=== PATIENT | male | born 1985 | race Caucasian/White ===

== ENCOUNTER → 2019-02-01 | Outpatient (CLI) | payer OTHER ==
--- NOTE | 2019-02-01 09:52 | REP ---
MRI LEFT HAND: TECHNIQUE: Multiple sequences obtained in the axial, coronal and sagittal planes. Additional small field of view images are performed of the first digit where there is reportedly pain. There is no evidence of bone marrow edema or occult fracture. Subcentimeter cyst is seen in the triquetrum, measuring about 2 mm. No other osseous abnormalities are seen. Normal amount of joint fluid is seen in the intercarpal joints. The triangular fibrocartilage complex appears intact. Scapholunate and lunatotriquetral ligaments are intact. Collateral ligaments of the digits appear intact as do the flexor and extensor tendons. I do not see evidence of significant tenosynovitis. I do not see evidence of a ganglion cyst or other soft tissue abnormality. I do not see significant arthritic changes. IMPRESSION: Essentially unremarkable MRI left hand. Electronically Signed by Minh Garcia MD 02/06/2019 11:34 A
== END ==
LOC: M RAD 06:48
PROVIDERS: ATTEND Orthopaedic Surgery Sports Medicine
DX: M25.542 Pain in joints of left hand (principal)

== ENCOUNTER → 2019-09-19 | Outpatient (CLI) | payer OTHER ==
--- NOTE | 2019-09-24 00:43 | ECWPNPC ---
PATIENT NAME: GISELLE MARTIN : 1985 GENDER: MALE VISIT DATE: 09/19/2019 DISCHARGE DATE: 09/19/19 1019 VISIT LOCKED DATE TIME: PHYSICIAN: INGE FERNÁNDEZ RESOURCE: INGE FERNÁNDEZ REASON FOR APPOINTMENT 1. CHRONIC LOW BACK HISTORY OF PRESENT ILLNESS PAIN SCREENING: PATIENT HAS A COMPLAINT OF ACUTE OR CHRONIC PAIN :YES 34-YEAR-OLD MALE IN FOR INITIAL PAIN CONSULT. 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 HE HAS BEEN PRESCRIBED BACLOFEN AND FEELS THIS IS HELPFUL. HE RATES HIS PAIN CURRENTLY AT A 7 OUT OF 10 AND DESCRIBES IT ACHING, SHARP, BURNING, STABBING, SORE, AND TENDER. HE FURTHER STATES THE PAIN LASTS ALL DAY AND DOES ADMIT TO RADICULAR SYMPTOMS. FALL RISK SCREENING: SCREENING :NO FALLS REPORTED IN THE LAST YEAR CURRENT MEDICATIONS TAKING METFORMIN HCL 500 MG TABLET 1 TABLET WITH A MEAL ORALLY ONCE A DAY TAKING BACLOFEN 20 MG TABLET 2 TABLET WITH FOOD OR MILK ORALLY DAILY TAKING SERTRALINE HCL 100 MG TABLET 1 TABLET ORALLY ONCE A DAY MEDICATION LIST REVIEWED AND RECONCILED WITH THE PATIENT PAST MEDICAL HISTORY CHRONIC LOW BACK PAIN DIABETES PTSD DEPRESSION/ANXIETY COMPRESSION L1-L4 DISCS ALLERGIES N.K.D.A. 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 DAUGHTER IS ADOPTED. SOCIAL HISTORY GENERAL: TOBACCO USE ARE YOU A:CURRENT SMOKER ARE YOU INTERESTED IN QUITTING?NOT READY TO QUIT COUNSELED THE PATIENT ON SMOKING EFFECTS, EDUCATION [id number]/26/2019 HOW MANY CIGARETTES A DAY DO YOU SMOKE?- PAIN CLINIC PFS, CLERGY, PUBLIC HEALTH REFERRALS HAS THE PATIENT BEEN EDUCATED REGARDING HIS/HER PLAN OF CARE?YES HAS THE PATIENT BEEN EDUCATED REGARDING PAIN, THE RISK FOR PAIN, THE IMPORTANCE OF EFFECTIVE PAIN MANAGEMENT, AND THE PAIN ASSESSMENT PROCESS?YES LATEX QUESTIONNAIRE LATEX ALLERGY : HAVE YOU EVER DEVELOPED ANY TYPE OF REACTION AFTER HANDLING LATEX PRODUCTS SUCH RUBBER GLOVES, CONDOMS, DIAPHRAGMS, BALLOONS, SOCKS, OR UNDERWEAR?NO LATEX ALLERGY : HAVE YOU EVER DEVELOPED ANY TYPE OF REACTION DURING OR AFTER DENTAL APPOINTMENT, VAGINAL/RECTAL EXAMINATION, SURGICAL PROCEDURE, OR ANY OTHER EXPOSURE?NO LATEX RISK : HAVE YOU EVER HAD ANY DIFFICULTY BREATHING OR HIVES AFTER EATING OR HANDLING ANY FRUITS, OR VEGETABLES; SUCH KIWI, BANANAS, STONE FRUITS, OR CHESTNUTSNO LATEX RISK : DO YOU HAVE A PREVIOUS PERSONAL HISTORY OF MORE THAN NINE SURGERIES, SPINA BIFIDA, OR REPEATED CATHERIZATIONS? NO LATEX RISK : ARE YOU FREQUENTLY EXPOSED TO LATEX PRODUCTS IN YOUR OCCUPATION?NO DATE ASKED : 09/19/2019 ADVANCE DIRECTIVE ADVANCE DIRECTIVE DISCUSSED WITH PATIENT:YES DECLINED CHRISTIAN [id number] OTHER LANGUAGE LANGUAGES SPOKEN:MACEDONIAN LEARNING BARRIERS / SPECIAL NEEDS BARRIERS TO LEARNING?NO HEARING IMPAIRED?NO VISION IMPAIRED?NO COGNITIVELY IMPAIRED?NO READINESS TO LEARN?YES LEARNING PREFERENCES?NO LEARNING CAPABILITIES PRESENT?YES EMOTIONAL BARRIERS?NO SPECIAL DEVICES?NO HOSPITALIZATION/MAJOR DIAGNOSTIC PROCEDURE CHEST TUBE REVIEW OF SYSTEMS REVIEWED BY: PROVIDER: CHIDI ADKINS . CONSTITUTIONAL: ANY CHANGE IN YOUR MEDICAL CONDITION? NO . CHILLS NO . FEVER NO . INFECTION: DO YOU HAVE NEW INFECTIONS? NO . DO YOU HAVE HISTORY OF MRSA? NO . MUSCULOSKELETAL: ANY NEW PATTERNS OF PAIN OR NUMBNESS? NO . SYTEMIC LUPUS NO . GASTROENTEROLOGY: ANY NEW CHANGE IN BOWEL CONTROL? NO . BARRETTS ESOPHAGUS NO . CIRRHOSIS NO . HEPATITIS NO . LIVER FAILURE NO . ACID REFLUX NO . UNEXPLAINED WEIGHT LOSS NO . GENITOURINARY: ANY NEW CHANGE IN BLADDER CONTROL? NO . IS THERE A CHANCE YOU COULD BE ? NO . HEMATOLOGY/LYMPH: DO YOU TAKE ANY BLOOD THINNERS? (FOR EXAMPLE- COUMADIN, PLAVIX, AGGRENOX, PLATEL, PRADAXA, OR XARELTO) NO . WHEN WAS YOUR LAST DOSE? DATE: TIME: . LOW PLATELET COUNT NO . SICKLE CELL DISEASE NO . VON WILLIEBRANDS NO . FACTOR V LEIDEN NO . THALLASEMIA NO . ANEMIA NO . EASY BRUISING NO . NEUROLOGY: HAVE YOU FALLEN IN THE PAST 12 MONTHS? NO . ANY NEW EXTREMITY NUMBNESS OR WEAKNESS? NO . HEAD INJURY NO . DEMENTIA NO . CEREBRAL PALSY NO . MULTIPLE SCLEROSIS NO . DIZZINESS NO . HEADACHE NO . STROKES NO . VERTIGO NO . CARDIOLOGY: DO YOU HAVE A PACEMAKER OR DEFIBRILLATOR? NO . ANGINA NO . HEART ATTACK NO . HEART SURGERY NO . CONGESTIVE HEART FAILURE/FLUID OVERLOAD NO . CHEST PAIN NO . HIGH BLOOD PRESSURE NO . IRREGULAR HEART BEAT NO . RESPIRATORY: HAVE YOU BEEN SICK IN THE PAST WEEK? NO . FEVER NO . FLU LIKE SYMPTOMS? NO . CPAP NO . BYPAP NO . ASTHMA NO . EMPHYSEMA NO . CHRONIC LUNG DISEASES NO . SHORTNESS OF BREATH ON EXERTION NO . COUGH NO . SNORING NO . INTEGUMENTARY: DO YOU HAVE ANY RASHES OR OPEN SORES? NO . ALLERGIC/IMMUNO: ARE YOU ALLERGIC TO IV DYE? NO . ANY NEW ALLERGIES? NO . PSYCHIATRIC: DO YOU HAVE THOUGHTS OF HURTING YOURSELF OR SOMEONE ELSE? NO . ARE YOU ABUSED, NEGLECTED, OR IN AN UNSAFE ENVIRONMENT? NO . ENDOCRINOLOGY: ARE YOU DIABETIC? NO . THYROID DISORDER NO . OTHER: DO YOU NEED ANY PRESCRIPTIONS? NO . IF YES, PLEASE LIST: ____ . ANY NEW PROBLEMS WITH YOUR MEDICATIONS? NO . WHEN DID YOU LAST EAT? ____ . WHEN DID YOU LAST DRINK? ____ . WHAT DID YOU LAST DRINK? ____ . NAME OF PERSON DRIVING YOU HOME? ____ . DO YOU HAVE ANY OTHER QUESTIONS OR CONCERNS NO . VITAL SIGNS WT 180.2 LBS, HT 65 IN, BMI 29.98 INDEX, BP 143/92 MM HG, HR 76 /MIN, RR 18 /MIN, TEMP 98.5 F, OXYGEN SAT % 97%, NA INITIALS SC 09:15, REVIEWED BY: EM. EXAMINATION GENERAL EXAMINATION: GENERALNO ACUTE DISTRESS, WELL NOURISHED AND HYDRATED. PSYCHAPPROPRIATE MOOD AND AFFECT . LUNGS:CLEAR TO AUSCULTATION BILATERALLY, NO WHEEZES, RHONCHI, RALES. HEART:NO MURMURS, REGULAR RATE AND RHYTHM. BACK:POINT TENDER ALONG LUMBAR SPINE, SURROUNDING SKIN SHOWS NO ERYTHEMA, ECCHYMOSIS, INCREASED WARMTH, AND/OR SKIN ERUPTIONS NOTED. . MUSCULOSKELETAL:EQUAL STRENGTH OF THE LOWER EXTREMITIES BILATERALLY . ASSESSMENTS INTERVERTEBRAL DISC DISORDER WITH RADICULOPATHY OF LUMBAR REGION - M51.16 (PRIMARY) TREATMENT INTERVERTEBRAL DISC DISORDER WITH RADICULOPATHY OF LUMBAR REGION INCREASE BACLOFEN TABLET, 20 MG, 1 TABLET IN THE AFTERNOON 2 TABLETS AT AT BEDTIME, ORALLY, DAILY, 30 DAYS, 90 NOTES: LESI L4-L5 L5-S1,LUMBAR EPIDURAL STEROID INJECTION MATERIAL WAS PUBLISHED TO [employer]. CLINICAL NOTES: 34-YEAR-OLD MALE IN FOR INITIAL PAIN CONSULT. GIVEN PRESENTING SYMPTOMS AND RESULTS OF PHYSICAL EXAMINATION RECOMMENDED LESI L4-L5 L5-S1 WITH POSTPROCEDURAL FOLLOW-UP. HE HAS BEEN TAKING BACLOFEN AND FOUND THIS HELPFUL RECOMMENDED INCREASING BACLOFEN TO 60 MG DAILY. PATIENT HAS EXPRESSED UNDERSTANDING OF AND WAS IN AGREEMENT WITH TREATMENT PLAN. GIVEN TIME TO ASK QUESTIONS AND EXPRESS CONCERNS. PROCEDURE CODES FA211 ESTABILISHED PATIENT [facility] CHARGE DISPOSITION & COMMUNICATION FOLLOW UP POSTPROCEDURE (REASON: LESI L4-L5 L5-S1) ELECTRONICALLY SIGNED BY ELYSSA HOLMAN ON 09/23/2019 AT 03:11 PM EST DISCLAIMER : THIS IS A VISIT SUMMARY EXTRACTED FROM THE [employer] CHART. IT IS NOT A COPY OF THE [employer] PROGRESS NOTE. MTDD
== END ==
LOC: M PAIN 09:00
PROVIDERS: ATTEND Family Medicine
DX: M51.16 Intervertebral disc disorders with radiculopathy, lumbar region (principal)

== ENCOUNTER → 2019-10-14 | Outpatient (CLI) | payer OTHER ==
[~2019-10-14] MED LIST: ISOVUE-M 300 61% 15ML VIAL (Q9967) As Ordered ONE; LIDOCAINE 1% SDV INJ 30 ML VIAL As Ordered ONE; diazePAM 5 MG TAB As Ordered ONE; methylPREDNISolone SUSP 40 MG/ML (DEPO-medrol) VIAL (J1030) As Ordered ONE; oxyCODONE 5MG TAB As Ordered ONE
--- NOTE | 2019-10-15 07:57 | REP ---
Partial lumbar spine series: Three views . History: Injection procedure for pain. Six seconds of fluoroscopy time is reported. Findings: A sequence of three fluoroscopically obtained last image hold procedural spot radiographs of the lumbar spine document needle position and contrast injection associated with injection procedure. Electronically Signed by Edgar Batista MD 10/15/2019 07:48 A
--- NOTE | 2019-10-26 04:03 | ECWPNPC ---
PATIENT NAME: GISELLE MARTIN : 1985 GENDER: MALE VISIT DATE: 10/14/2019 DISCHARGE DATE: 10/14/191735 VISIT LOCKED DATE TIME: PHYSICIAN: VIDHI LEAL MD RESOURCE: VIDHI LEAL MD REASON FOR APPOINTMENT 1. LESI HISTORY OF PRESENT ILLNESS HISTORY OF PRESENT ILLNESS: PAIN THE PATIENT DESCRIBES THE PAIN... FALL RISK SCREENING: SCREENING :NO FALLS REPORTED IN THE LAST YEAR CURRENT MEDICATIONS TAKING METFORMIN HCL 500 MG TABLET 1 TABLET WITH A MEAL ORALLY ONCE A DAY, NOTES: 10/12/2019 TAKING SERTRALINE HCL 100 MG TABLET 1 TABLET ORALLY ONCE A DAY, NOTES: 10/13/2019 TAKING BACLOFEN 20 MG TABLET 1 TABLET IN THE AFTERNOON 2 TABLETS AT AT BEDTIME ORALLY DAILY, NOTES: 10/13/2019 MEDICATION LIST REVIEWED AND RECONCILED WITH THE PATIENT PAST MEDICAL HISTORY CHRONIC LOW BACK PAIN DIABETES PTSD DEPRESSION/ANXIETY COMPRESSION L1-L4 DISCS ALLERGIES N.K.D.A. SURGICAL HISTORY SPONTANEOUS PNEUMOTHORAX CHEST TUBE PLACED HIGH SCHOOL RIGHT ANKLE 2005 RIGHT SHOULDER 2016 WISDOM TEETH EXTRACTED FAMILY HISTORY FATHER: MOTHER: ALIVE 1 SON(S) , 1 DAUGHTER(S) - HEALTHY. DAUGHTER IS ADOPTED. SOCIAL HISTORY GENERAL: TOBACCO USE ARE YOU A:CURRENT SMOKER HOW MANY CIGARETTES A DAY DO YOU SMOKE?21-30 ARE YOU INTERESTED IN QUITTING?NOT READY TO QUIT COUNSELED THE PATIENT ON SMOKING EFFECTS, EDUCATION [id number]/26/2019 PAIN CLINIC PFS, CLERGY, PUBLIC HEALTH REFERRALS HAS THE PATIENT BEEN EDUCATED REGARDING HIS/HER PLAN OF CARE?YES HAS THE PATIENT BEEN EDUCATED REGARDING PAIN, THE RISK FOR PAIN, THE IMPORTANCE OF EFFECTIVE PAIN MANAGEMENT, AND THE PAIN ASSESSMENT PROCESS?YES LATEX QUESTIONNAIRE LATEX ALLERGY : HAVE YOU EVER DEVELOPED ANY TYPE OF REACTION AFTER HANDLING LATEX PRODUCTS SUCH RUBBER GLOVES, CONDOMS, DIAPHRAGMS, BALLOONS, SOCKS, OR UNDERWEAR?NO LATEX ALLERGY : HAVE YOU EVER DEVELOPED ANY TYPE OF REACTION DURING OR AFTER DENTAL APPOINTMENT, VAGINAL/RECTAL EXAMINATION, SURGICAL PROCEDURE, OR ANY OTHER EXPOSURE?NO DATE ASKED : 09/19/2019 LATEX RISK : HAVE YOU EVER HAD ANY DIFFICULTY BREATHING OR HIVES AFTER EATING OR HANDLING ANY FRUITS, OR VEGETABLES; SUCH KIWI, BANANAS, STONE FRUITS, OR CHESTNUTSNO LATEX RISK : DO YOU HAVE A PREVIOUS PERSONAL HISTORY OF MORE THAN NINE SURGERIES, SPINA BIFIDA, OR REPEATED CATHERIZATIONS? NO LATEX RISK : ARE YOU FREQUENTLY EXPOSED TO LATEX PRODUCTS IN YOUR OCCUPATION?NO ADVANCE DIRECTIVE ADVANCE DIRECTIVE DISCUSSED WITH PATIENT:YES DECLINED INFORMATION OR ASSISTANCE AT THIS TIME MU-ISM [id number] OTHER LANGUAGE LANGUAGES SPOKEN:SCOTTISH LEARNING BARRIERS / SPECIAL NEEDS BARRIERS TO LEARNING?NO HEARING IMPAIRED?NO VISION IMPAIRED?NO COGNITIVELY IMPAIRED?NO READINESS TO LEARN?YES LEARNING PREFERENCES?NO LEARNING CAPABILITIES PRESENT?YES EMOTIONAL BARRIERS?NO SPECIAL DEVICES?NO REVIEWED WITH PATIENT 10/14/2019 LAS. HOSPITALIZATION/MAJOR DIAGNOSTIC PROCEDURE CHEST TUBE REVIEW OF SYSTEMS REVIEWED BY: PROVIDER: . CONSTITUTIONAL: ANY CHANGE IN YOUR MEDICAL CONDITION? NO . CHILLS NO . FEVER NO . INFECTION: DO YOU HAVE NEW INFECTIONS? NO . DO YOU HAVE HISTORY OF MRSA? NO . MUSCULOSKELETAL: ANY NEW PATTERNS OF PAIN OR NUMBNESS? NO . GASTROENTEROLOGY: ANY NEW CHANGE IN BOWEL CONTROL? NO . GENITOURINARY: ANY NEW CHANGE IN BLADDER CONTROL? NO . IS THERE A CHANCE YOU COULD BE ? NO . HEMATOLOGY/LYMPH: DO YOU TAKE ANY BLOOD THINNERS? (FOR EXAMPLE- COUMADIN, PLAVIX, AGGRENOX, PLATEL, PRADAXA, OR XARELTO) NO . WHEN WAS YOUR LAST DOSE? DATE: TIME: . NEUROLOGY: HAVE YOU FALLEN IN THE PAST 12 MONTHS? NO . ANY NEW EXTREMITY NUMBNESS OR WEAKNESS? NO . CARDIOLOGY: DO YOU HAVE A PACEMAKER OR DEFIBRILLATOR? NO . RESPIRATORY: HAVE YOU BEEN SICK IN THE PAST WEEK? NO . FEVER NO . FLU LIKE SYMPTOMS? NO . COUGH NO . INTEGUMENTARY: DO YOU HAVE ANY RASHES OR OPEN SORES? NO . ALLERGIC/IMMUNO: ARE YOU ALLERGIC TO IV DYE? NO . ANY NEW ALLERGIES? NO . PSYCHIATRIC: DO YOU HAVE THOUGHTS OF HURTING YOURSELF OR SOMEONE ELSE? NO . ARE YOU ABUSED, NEGLECTED, OR IN AN UNSAFE ENVIRONMENT? NO . ENDOCRINOLOGY: ARE YOU DIABETIC? YES . OTHER: DO YOU NEED ANY PRESCRIPTIONS? NO . IF YES, PLEASE LIST: ____ . ANY NEW PROBLEMS WITH YOUR MEDICATIONS? NO . WHEN DID YOU LAST EAT? ____10/13/2019 1700 . WHEN DID YOU LAST DRINK? ____10/14/2019 0800 . WHAT DID YOU LAST DRINK? ____WATER . NAME OF PERSON DRIVING YOU HOME? ____WIFE . DO YOU HAVE ANY OTHER QUESTIONS OR CONCERNS NO . VITAL SIGNS WT 178.6 LBS, HT 65 IN, BMI 29.72 INDEX, BP 141/74 MM HG, HR 101 /MIN, RR 18 /MIN, TEMP 99.0 F, OXYGEN SAT % 96% RA, BLOOD GLUCOSE LEVEL DIDNT TEST, SAFE IN ENV? (Y/N) YESA. ADRIANA CHAU. ASSESSMENTS INTERVERTEBRAL DISC DISORDER WITH RADICULOPATHY OF LUMBAR REGION - M51.16 (PRIMARY) TREATMENT INTERVERTEBRAL DISC DISORDER WITH RADICULOPATHY OF LUMBAR REGION [facility] FLUORO GUIDE SPINE INJECTION (PAIN)[id number] PROCEDURES PRE PROCEDURE DIAGNOSIS LUMBAR DISC DISORDER WITH RADICULOPATHY POST PROCEDURE DIAGNOSIS LUMBAR DISC DISORDER WITH RADICULOPATHY PROCEDURE LUMBAR EPIDURAL STEROID INJECTION UNDER FLUOROSCOPIC GUIDANCE SURGEON DR. VIDHI LEAL CONE TRUCKER NONE ANESTHESIA LOCAL PRE PROCEDURE NOTE THE PATIENT HAS A HISTORY OF CHRONIC LOW BACK PAIN. I EVALUATED THE PATIENT AND REVIEWED THE CHART. I WENT OVER THE RISKS, ALTERNATIVES, AND BENEFITS ASSOCIATED WITH THIS PROCEDURE. THE PATIENT WOULD LIKE TO PROCEED AND GIVES CONSENT TO PERFORM THE PROCEDURE. THE PATIENT DENIES UNEXPLAINABLE WEIGHT LOSS, FEVER, CHILLS, OR NEW CHANGES IN URINARY OR BOWEL CONTROL. DESCRIPTION OF PROCEDURE THE PATIENT WAS BROUGHT TO THE PROCEDURE ROOM AND PLACED IN THE PRONE POSITION. THE LUMBOSACRAL AREA WAS CLEANED WITH BETADINE SOLUTION AND DRAPED ASEPTICALLY. THE PROCEDURE WAS DONE UNDER STERILE CONDITIONS. I CHECKED LATERALITY AND THE LEVEL WHERE THE PROCEDURE WAS GOING TO BE PERFORMED WITH THE PATIENT AND THE SUPPORTING STAFF AT THE MOMENT OF THE TIME OUT IN THE PROCEDURE ROOM. UNDER FLUOROSCOPIC GUIDANCE, THE TARGET POINT WAS SELECTED AT THE INTERLAMINAR LEVEL OF L3-L4. LIDOCAINE WAS USED TO NUMB THE SKIN AND THE SUBCUTANEOUS TISSUE BELOW IT. EPIDURAL TUOHY NEEDLE, 17-GAUGE, WAS ADVANCED UNDER FLUOROSCOPIC GUIDANCE AND FOLLOWING PATIENT FEEDBACK UNTIL THE EPIDURAL SPACE WAS REACHED, 7 CM DEEP INTO THE SKIN BY THE LOSS OF RESISTANCE TECHNIQUE. ISOVUE M DYE 30%, 0.25 ML, WAS INJECTED SHOWING ADEQUATE SPREAD OF THE DYE. THEN, A SOLUTION OF 3 ML OF NORMAL SALINE WITH DEPO-MEDROL 60 MG WAS INJECTED SLOWLY FOLLOWING PATIENT FEEDBACK. THERE WAS NO EVIDENCE OF BLOOD, PARESTHESIA OR CEREBROSPINAL FLUID DURING THE PROCEDURE. THE PATIENT WAS SENT TO THE RECOVERY ROOM. THE PATIENT WAS MOVING THE EXTREMITIES AND DOING WELL. THERE WAS NO COMPLICATION DURING THE PROCEDURE. FLUOROSCOPY TIME WAS 6 SECONDS. POST PROCEDURE NOTE THE PATIENT WILL BE SEEN IN A FOLLOW UP IN THE NEXT FEW WEEKS. I AM LOOKING FOR LONG LASTING PAIN RELIEF WITH THIS INJECTION. INSTRUCTIONS WERE GIVEN, QUESTIONS WERE ANSWERED, AND THE PATIENT EXPRESSED UNDERSTANDING AND AGREES WITH THE PLAN. I, RHINA PERALTA, DOCUMENTED THE ABOVE INFORMATION ACTING A SCRIBE FOR DR. LEAL. I HAVE REVIEWED THE ABOVE DOCUMENT, WRITTEN BY RHINA PERALTA SCRIBE AND I VERIFY THAT IT IS ACCURATE. PROCEDURE CODES 92115 LUMBAR/SACRAL W/ IMAGING 6045F RADXPS IN END [id number] PXD DISPOSITION & COMMUNICATION FOLLOW UP 2 WEEKS ELECTRONICALLY SIGNED BY VIDHI LEAL MD, MD ON 10/25/2019 AT 05:23 PM EST DISCLAIMER : THIS IS A VISIT SUMMARY EXTRACTED FROM THE [employer] CHART. IT IS NOT A COPY OF THE [employer] PROGRESS NOTE. MTDSurya
== END ==
LOC: M PAIN 14:30
PROVIDERS: ATTEND Anesthesiology
DX: M51.16 Intervertebral disc disorders with radiculopathy, lumbar region (principal); E11.9 Type 2 diabetes mellitus without complications; F17.210 Nicotine dependence, cigarettes, uncomplicated; Z79.84 Long term (current) use of oral hypoglycemic drugs; Z79.899 Other long term (current) drug therapy
CPT/HCPCS: 62323; J1030; Q9967

== ENCOUNTER 2020-10-11 19:54 | Inpatient (IN) | payer OTHER ==
[~2020-10-11] VITALS: Ht 170.2 cm; Wt 77.1 kg
--- OUTSIDE RECORDS SUMMARY | 2020-10-11 19:59 | CCD ---
Author Author [facility] Organization [facility] Address Unknown Phone Unavailable Care Team Providers Care Police Lieutenant Precinct Name Role Phone TERRI NEWTON MD Unavailable Unavailable TERRI NEWTON MD Unavailable Unavailable TERRI NEWTON MD Unavailable Unavailable TERRI NEWTON MD Unavailable Unavailable TERRI NEWTON MD Unavailable Unavailable TERRI NEWTON MD Unavailable Unavailable TERRI NEWTON MD Unavailable Unavailable TERRI NEWTON MD Unavailable Unavailable TERRI NEWTON MD Unavailable Unavailable TERRI NEWTON MD Unavailable Unavailable TERRI NEWTON MD Unavailable Unavailable TERRI NEWTON MD Unavailable Unavailable TERRI NEWTON MD Unavailable Unavailable TERRI NEWTON MD Unavailable Unavailable TERRI NEWTON MD Unavailable Unavailable TERRI NEWTON MD Unavailable Unavailable TERRI NEWTON MD Unavailable Unavailable TERRI NEWTON MD Unavailable Unavailable TERRI NEWTON MD Unavailable Unavailable TERRI NEWTON MD Unavailable Unavailable TERRI NEWTON MD Unavailable Unavailable TERRI NEWTON MD Unavailable Unavailable TERRI NEWTON MD Unavailable Unavailable TERRI NEWTON MD Unavailable Unavailable TERRI NEWTON MD Unavailable Unavailable TERRI NEWTON MD Unavailable Unavailable TERRI NEWTNO MD Unavailable Unavailable TERRI NEWTON MD Unavailable Unavailable TERRI NEWTON MD Unavailable Unavailable TERRI NEWTON MD Unavailable Unavailable TERRI NEWTON MD Unavailable Unavailable TERRI NEWTON MD Unavailable Unavailable TERRI NEWTON MD Unavailable Unavailable TERRI NEWTON MD Unavailable Unavailable TERRI NEWTON MD Unavailable Unavailable AMAN, TERRI MD Unavailable Unavailable AMAN, TERRI MD Unavailable Unavailable AMAN, TERRI MD Unavailable Unavailable AMAN, TERRI MD Unavailable Unavailable AMAN, TERRI MD Unavailable Unavailable AMAN, TERRI MD Unavailable Unavailable AMAN, TERRI MD Unavailable Unavailable AMAN, TERRI MD Unavailable Unavailable AMAN, TERRI MD Unavailable Unavailable AMAN, TERRI MD Unavailable Unavailable AMAN, TERRI MD Unavailable Unavailable AMAN, TERRI MD Unavailable Unavailable AMAN, TERRI MD Unavailable Unavailable AMAN, TERRI MD Unavailable Unavailable AMAN, TERRI MD Unavailable Unavailable AMAN, TERRI MD Unavailable Unavailable AMAN, TERRI MD Unavailable Unavailable Re-disclosure Warning The records that you are about to access may contain information from federally-assisted alcohol or drug abuse programs. If such information is present, then the following federally mandated warning applies: This information has been disclosed to you from records protected by federal confidentiality rules (42 CFR part 2). The federal rules prohibit you from making any further disclosure of this information unless further disclosure is expressly permitted by the written consent of the person to whom it pertains or as otherwise permitted by 42 CFR part 2. A general authorization for the release of medical or other information is NOT sufficient for this purpose. The Federal rules restrict any use of the information to criminally investigate or prosecute any alcohol or drug abuse patient.The records that you are about to access may contain highly sensitive health information, the redisclosure of which is protected by Article 27-F of the [facility] Public Health law. If you continue you may have access to information: Regarding HIV / AIDS; Provided by facilities licensed or operated by the [facility] Office of Mental Health; or Provided by the [facility] Office for People With Developmental Disabilities. If such information is present, then the following [facility] mandated warning applies: This information has been disclosed to you from confidential records which are protected by state law. State law prohibits you from making any further disclosure of this information without the specific written consent of the person to whom it pertains, or as otherwise permitted by law. Any unauthorized further disclosure in violation of state law may result in a fine or long term sentence or both. A general authorization for the release of medical or other information is NOT sufficient authorization for further disc losure. Encounters Encounter Providers Location Date Indications Data Source(s ) Outpatient Referrer: TERRI NEWTON MD 02/05/2020 09:48:00 AM ED T [facility] Outpatient Referrer: TERRI NEWTON MD 10/27/2019 02:49:00 PM ES T [facility] Outpatient Referrer: TERRI NEWTON MD 10/18/2019 01:51:00 PM ES T [facility] [address] [place] [address] 10/14/2019 12:00:00 AM EST eCW1 ([facility]) [facility] [address] [place] [address] 09/19/2019 12:00:00 AM EST eCW1 ([facility]) Insurance Providers Payer name Policy type / Coverage type Policy ID Covered democrat ID Covered democrat's relationship to alicea Policy [place] Plan Information S [facility] [id number] SP [id number] WEST O [id number] S [id number] 'S ADMINISTRATION [id number] SP [id number] [facility] O [id number] S [id number] [employer] - O/P [id number] 18 [id number] [facility] - CLINIC [id number] 18 [id number] [employer] CHOICE PROGRAM - CLIN [id number] 18 [id number] [facility] P [id number] S [id number] Surgeries/Procedures Procedure Description Date Indications Data Source(s) Lumbar/Sacral w/ Imaging 10/14/2019 12:00:00 AM EST eCW1 ([facility]) RADXPS IN END [id number] 10/14/2019 12:00:00 AM ES T eCW1 ([facility]) ESTABILISHED PATIENT [facility] FACILITY CHARGE 019 12:00:00 AM EST eCW1 ([facility]) Vital Signs ID Date Data Source UNK Name Value Range Interpretation Code Description Data Source(s) Diastolic blood pressure 74 mm[Hg] 74 mm[Hg] eCW1 ([facility]) Systolic blood pressure 141 mm[Hg] 141 mm[Hg] e CW1 ([facility]) Body temperature 99.0 [degF] 99.0 [degF] eCW1 ( [facility]) Respiratory rate 18 /min 18 /min [facility] Heart rate 101 /min 101 /min eCW[facility] Body mass index (BMI) [Ratio] 29.72 kg/m2 29.72 kg/m2 eCW1 ([facility]) Body height 65 [in_us] 65 [in_us] eCW1 ([facility]) Body weight Measured 178.6 [lb_av] 178.6 [lb_av ] eCW1 ([facility]) Diastolic blood pressure 92 mm[Hg] 92 mm[Hg] eCW1 ([facility]) Systolic blood pressure 143 mm[Hg] 143 mm[Hg] e CW1 ([facility]) Body temperature 98.5 [degF] 98.5 [degF] eCW1 ( [facility]) Respiratory rate 18 /min 18 /min eCW[facility] Heart rate 76 /min 76 /min eCW1 ([facility]) Body mass index (BMI) [Ratio] 29.98 kg/m2 29.98 kg/m2 eCW1 ([facility]) Body height 65 [in_us] 65 [in_us] eCW1 ([facility]) Body weight Measured 180.2 [lb_av] 180.2 [lb_av ] eCW1 ([facility])
[2020-10-11 20:20] LABS: HEMOGLOBIN 15.3 g/dl (13.5-17.5); MEAN CORPUSCULAR HEMOGLOBIN 30.6 pg (27.0-33.0); PLATELET COUNT, AUTOMATED 232 10^3/uL (150-450)
[2020-10-11 20:54] LABS: AMPHETAMINES LEVEL URINE NEGATIVE (NEGATIVE); BARBITURATES URINE NEGATIVE (NEGATIVE); BENZODIAZEPINES URINE NEGATIVE (NEGATIVE); CANNABINOIDS URINE POSITIVE (NEGATIVE); COCAINE METABOLITE URINE NEGATIVE (NEGATIVE); METHADONE URINE NEGATIVE (NEGATIVE); OPIATES URINE NEGATIVE (NEGATIVE); PHENCYCLIDINE URINE NEGATIVE (NEGATIVE)
[2020-10-11 21:01] LABS: ACETAMINOPHEN LEVEL < 2.0 UG/ML (10.0-30.0); ALBUMIN 4.4 GM/DL (3.2-5.2); ALT/SGPT 31 U/L (12-78); BILIRUBIN,DIRECT 0.2 MG/DL (0.0-0.2); BILIRUBIN,TOTAL 0.5 MG/DL (0.2-1.0); BLOOD UREA NITROGEN 13 MG/DL (7-18); CALCIUM LEVEL 9.1 MG/DL (8.5-10.1); CARBON DIOXIDE LEVEL 25 MEQ/L (21-32); CHLORIDE LEVEL 105 MEQ/L (98-107); CREATININE FOR GFR 0.86 MG/DL (0.70-1.30); ETHYL ALCOHOL (ETHANOL) < 0.003 % (0.000-0.010); GLOMERULAR FILTRATION RATE > 60.0 (>60); GLUCOSE, FASTING 85 MG/DL (70-100); POTASSIUM SERUM 3.7 MEQ/L (3.5-5.1); SALICYLATE LEVEL < 1.7 MG/DL (5.0-30.0); SODIUM LEVEL 137 MEQ/L (136-145); TOTAL PROTEIN 7.7 GM/DL (6.4-8.2)
[2020-10-11] MEDS ORDERED: METF-839 PO (21:26)
[2020-10-11] MEDS ORDERED: ZOLO100T PO (21:27)
[2020-10-11 21:28] LABS: RSV AMPLIFICATION NEGATIVE (NEGATIVE)
[2020-10-11 21:38] LABS: HEMATOCRIT 45.6 % (42.0-52.0); HEMOGLOBIN 15.3 g/dl (13.5-17.5); MEAN CORPUSCULAR HEMOGLOBIN 29.8 pg (27.0-33.0); MEAN CORPUSCULAR HGB CONC 33.6 g/dl (32.0-36.5); MEAN CORPUSCULAR VOLUME 88.9 fl (80.0-96.0); PLATELET COUNT, AUTOMATED 239 10^3/uL (150-450); RED BLOOD COUNT 5.13 10^6/uL (4.30-6.10); WHITE BLOOD COUNT 26.8 10^3/uL (4.0-10.0)
--- OUTSIDE RECORDS SUMMARY | 2020-10-11 21:39 | CCD ---
Author Author [facility] Organization [facility] Address Unknown Phone Unavailable Care Team Providers Care Talent Sourcing Specialist Name Role Phone TERRI NEWTON MD Unavailable [...] is protected by Article 27-F of the [facility] Public Health law. If you continue you may have access to information: Regarding HIV / AIDS; Provided by facilities licensed or operated by the [facility] Office of Mental Health; or Provided by the [facility] Office for People With Developmental Disabilities. If such information is present, then the following [facility] mandated warning applies: This information has been [...] law may result in a fine or care home sentence or both. A general authorization for the release of medical or other information is NOT sufficient authorization for further disc losure. Encounters Encounter Providers Location Date Indications Data Source(s ) Outpatient Referrer: TERRI NEWTON MD 02/05/2020 09:48:00 AM ED T [facility] Outpatient Referrer: TERRI NEWTON MD 10/27/2019 02:49:00 PM ES T [facility] Outpatient Referrer: TERRI NEWTON MD 10/18/2019 01:51:00 PM ES T [facility] [address] [place] [phone] 10/14/2019 12:00:00 AM EST eCW1 (Formerly [facility]) [facility] [address] [place] [phone] 09/19/2019 12:00:00 AM EST eCW1 (Formerly [facility]) Insurance Providers Payer name Policy type / Coverage type Policy ID Covered alliance party ID Covered alliance party's relationship to alicea Policy Alicea Plan Information 'S ADMINISTRATION [id number] SP [id number] S [employer] [facility] [id number] SP [id number] WEST O [id number] S [id number] [facility] O [id number] S [id number] VETERANS CHOICE PROGRAM - O/P [id number] 18 [id number] [facility] [id number] 18 [id number] [place] [id number] 18 [id number] [facility] P [id number] S 0 [id number] Surgeries/Procedures Procedure Description Date Indications Data Source(s) Lumbar/Sacral w/ Imaging 10/14/2019 12:00:00 AM EST eCW1 ([facility]) RADXPS IN END [id number] PXD 10/14/2019 12:00:00 AM ES T eCW1 ([facility]) ESTABILISHED PATIENT [facility] FACILITY CHARGE 019 12:00:00 AM EST eCW1 ([facility]) Vital Signs ID Date Data Source UNK Name Value Range Interpretation Code Description Data Source(s) Diastolic blood pressure 74 mm[Hg] 74 mm[Hg] eCW1 ([facility]) Systolic blood pressure 141 mm[Hg] 141 mm[Hg] e CW1 ([facility]) Body temperature 99.0 [degF] 99.0 [degF] eCW1 ( [facility]) Respiratory rate 18 /min 18 /min eCW1 ([facility]) Heart rate 101 /min 101 /min eCW1 ([facility]) Body mass index (BMI) [Ratio] 29.72 kg/m2 29.72 kg/m2 eCW1 ([facility]) Body height 65 [in_us] 65 [in_us] eCW1 ([facility]) Body weight Measured 178.6 [lb_av] 178.6 [lb_av ] eCW1 ([facility]) Diastolic blood pressure 92 mm[Hg] 92 mm[Hg] eCW1 ([facility]) Systolic blood pressure 143 mm[Hg] 143 mm[Hg] e CW1 ([facility]) Body temperature 98.5 [degF] 98.5 [degF] eCW1 ( [facility]) Respiratory rate 18 /min 18 /min eCW1 ([facility]) Heart rate 76 /min 76 /min eCW1 ([facility]) Body mass index (BMI) [Ratio] 29.98 kg/m2 29.98 kg/m2 W1 ([facility]) Body height 65 [in_us] 65 [in_us] eCW1 ([facility]) Body weight Measured 180.2 [lb_av] 180.2 [lb_av ] W1 ([facility])
--- NOTE | 2020-10-12 09:13 | ECGEPIP ---
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
[2020-10-12] MEDS ORDERED: NICOTINE 21MG/24HR 1 EA TRANSDERMAL TD ONE (13:00)
[2020-10-12] MEDS ORDERED: LORazepam 2 MG TAB PO STA (13:34)
[2020-10-12 14:10] LABS: BASO # 0.1 10^3/uL (0.0-0.2); BASO % 0.9 % (0.0-1.0); EOS # 0.6 10^3/uL (0.0-0.5); EOS % 6.3 % (0.0-3.0); HEMATOCRIT 48.7 % (42.0-52.0); HEMOGLOBIN 16.2 g/dl (13.5-17.5); LYMPH # 3.3 10^3/uL (1.5-5.0); LYMPH % 32.3 % (24.0-44.0); MEAN CORPUSCULAR HEMOGLOBIN 30.1 pg (27.0-33.0); MEAN CORPUSCULAR HGB CONC 33.3 g/dl (32.0-36.5); MEAN CORPUSCULAR VOLUME 90.5 fl (80.0-96.0); MONO # 0.7 10^3/uL (0.0-0.8); MONO % 7.2 % (0.0-5.0); NEUTROPHILS # 5.3 10^3/uL (1.5-8.5); NEUTROPHILS % 52.9 % (36.0-66.0); PLATELET COUNT, AUTOMATED 245 10^3/uL (150-450); RED BLOOD COUNT 5.38 10^6/uL (4.30-6.10); WHITE BLOOD COUNT 10.1 10^3/uL (4.0-10.0)
[2020-10-12 18:34] LABS: RSV AMPLIFICATION NEGATIVE (NEGATIVE)
[2020-10-12] MEDS ORDERED: ACETAMINOPHEN TAB 650MG DOSE (2X325MG) PO PRN (19:15)
[2020-10-12] MEDS ORDERED: MOM 30ML SUSPENSION UDC PO PRN (19:15)
[2020-10-12] MEDS ORDERED: MAALOX 30 ML SUSP *UDC PO PRN (19:15)
[2020-10-12] MEDS ORDERED: traZODone 50 MG TAB PO PRN (19:15)
--- OUTSIDE RECORDS SUMMARY | 2020-10-12 19:43 | CCD ---
Author Author [facility] Organization [facility] Address Unknown Phone Unavailable Care Team Providers Care Help Aid Name Role Phone Selin Boyer MD Unavailable Unavailable Merlin, Selin Phillips MD Unavailable Unavailable Merlin, Selin Phillips MD Unavailable Unavailable Merlin, Selin Phillips MD Unavailable Unavailable Merlin, Selin Phillips MD Unavailable Unavailable Merlin, Selin Phillips MD Unavailable Unavailable Chakayode, Selin Phillips MD Unavailable Unavailable Chakayode, Selin Phillips MD Unavailable Unavailable Merlin, Selin Phillips MD Unavailable Unavailable Merlin, Selin Phillips MD Unavailable Unavailable Merlin, Selin Phillips MD Unavailable Unavailable Merlin, Selin Phillips MD Unavailable Unavailable Merlin, Selin Phillips MD Unavailable Unavailable Merlin, Selin Phillips MD Unavailable Unavailable Merlin, Selin Phillips MD Unavailable Unavailable TERRI NEWTON MD Unavailable [...] Unavailable Unavailable AMAN, TERRI MD Unavailable Unavailable SYSTEM, NOT IN PROVIDER Unavailable Unavailable Re-disclosure Warning The records that [...] is protected by Article 27-F of the [facility] Public Health law. If you continue you may have access to information: Regarding HIV / AIDS; Provided by facilities licensed or operated by the [facility] Office of Mental Health; or Provided by the [facility] Office for People With Developmental Disabilities. If such information is present, then the following [place] mandated warning applies: This information has been [...] law may result in a fine or nursing home sentence or both. A general authorization for the release of medical or other information is NOT sufficient authorization for further disc losure. Encounters Encounter Providers Location Date Indications Data Source(s ) Outpatient Referrer: Alan Boyer MD 10/12/2020 11:01:00 A M EST PTSD, SI [facility] PTSD, SI Outpatient Referrer: PROVIDER SYSTEM [id number] 10/12/2020 01:1 2:00 AM EST depressive disorder [facility] depressive disorder Outpatient Referrer: TERRI NEWTON MD 02/05/2020 09:48:00 AM ED T [facility] Outpatient Referrer: TERRI NEWTON MD 10/27/2019 02:49:00 PM ES T [facility] Outpatient Referrer: TERRI NEWTON MD 10/18/2019 01:51:00 PM ES T [facility] [address] [place] [phone] 10/14/2019 12:00:00 AM EST [facility]CW[facility] [address] [place] [phone] 09/19/2019 12:00:00 AM EST eCW1 [facility] Insurance Providers Payer name Policy type / Coverage type Policy ID Covered green party ID Covered green party's relationship to alicea Policy Alicea Plan Information [facility] [id number] [facility] [id number] 'S ADMINISTRATION [id number] SP [id number] [facility] [id number] [facility] 82 [id number] [facility] [id number] SP [id number] WEST O [id number] S [id number] [facility] O [id number] S [id number] [employer]ANS CHOICE PROGRAM - O/P [id number] 18 [id number] [facility] [id number] 18 [id number] [facility]ICE PRO[facility] - [facility] [id number] 18 [id number] [facility] [id number] S 0 [id number] Problems, Conditions, and Diagnoses Code Display Name Description Problem Type Effective Dates Data Source(s) PTSD, SI PTSD, SI Diagnosis 10/12/2020 11:01:00 AM ES [facility] depressive disorder depressive disorder Diagnosis 021 01:12:00 AM [facility] Surgeries/Procedures Procedure Description Date Indications Data Source(s) Lumbar/Sacral w/ Imaging 10/14/2019 12:00:00 AM EST eCW1 ([facility]) RADXPS IN END [id number] PXD 10/14/2019 12:00:00 AM ES [facility] ([facility]) ESTABILISHED PATIENT [facility] FACILITY CHARGE 019 12:00:00 AM EST [facility] ([facility]) Results ID Date Data Source [id number] 10/12/2020 01:40:29 AM [facility] Name Value Range Interpretation Code Description Data Yvonne rce(s) Supporting Document(s) Progress Note [facility] WXWVEm1tMfQRXsYg63/BLDsaMWGqx1WfODyeDAq2NNchYKNuJ1LtODS4dL4oOIS2LTlGTiUhAcKtBKZ7 lbm [file] FREELANCE MAKEUP ARTIST+Mr0LBQLbIB4CgUHZZ1VfcWGpPQhnF5IFWU7NEL T6WF0OwMDuCM6GjVRQQ8DpeQQfEq6fKDJij6AzXt9cM2JVQCSZBNApLDumQRjlOZUsLRn6Z5X8RHYvL2 MCR361iVGqiSt3Py0lP9HRSAiLSgNxHRymOThiGUNmCGw0V6W6HDTtW0AJS5HeQtLyrmNbJ5E+PiAvUE LBPY2QMHYWTFs6G8A4kILuY7Q6fDzFdYF5JZ7IMY8C eTLttDZwn49+ZfKNXaXiQCTzU2PAGMGPPcIwODicLSfwHGZlQPc5S5Z5IXVtK3GBU6hvM8g1AY2+PiAN LaCcYAHkYj5JFtIcAq1KPoYqZJ5exj1YWRNxRZDlVdySKob2U5eunod1lJBhLsP8W9H4PgR0kPGoXA8B M4Q6sNJkXFX5EMQhaOE+Ls2Yg9YxLUIiINj2U3htPT VmRSBaMwZadT68L++7xwfxsAP7P3r5OJPCtAOusIgSbxJnF7xRCTD3p1N6BGy/Gz7WHPE8yOv8zBToTL OzFBr7jF4yuZj0YdRsQK46IGAiNGksfA5eIzt9O5Jvt8NzMg5qIb0fhHKlMe6HZsAiQQF8ljJcZpGSFi Z5tHzgxfsaNHA4R1y9iFH6Ks52s5ofvcRxz0PnChG0 TUzwAAQeAmWnmpHnFRS3sxIwoJ5nwbNfQs7TIXLmMItogzSkGqMIId9JHuLxBM74MtpvaE7biXE+DQog ICAgICAgICAgICAgICAgICAgICAgICAgICAgICAgICAgICAgICAgICAgICAgICAgICAgICAgICAgICAg ICAgICAgICAgICAgICAgICAgICAgICAgICAgICAgIC AgICAgICAgDQogICAgICAgICAgICAgICAgICAgICAgICAgICAgICAgICAgICAgICAgICAgICAgICAgIC AgICAgICAgICAgICAgICAgICAgICAgICAgICAgICAgICAgICAgICAgICAgICAgICAgDQogICAgICAgIC AgICAgICAgICAgICAgICAgICAgICAgICAgICAgICAg ICAgICAgICAgICAgICAgICAgICAgICAgICAgICAgICAgICAgICAgICAgICAgICAgICAgICAgICAgICAg DQogICAgICAgICAgICAgICAgICAgICAgICAgICAgICAgICAgICAgICAgICAgICAgICAgICAgICAgICAg ICAgICAgICAgICAgICAgICAgICAgICAgICAgICAgIC AgICAgICAgICAgDQogICAgICAgICAgICAgICAgICAgICAgICAgICAgICAgICAgICAgICAgICAgICAgIC AgICAgICAgICAgICAgICAgICAgICAgICAgICAgICAgICAgICAgICAgICAgICAgICAgICAgDQogICAgIC AgICAgICAgICAgICAgICAgICAgICAgICAgICAgICAg ICAgICAgICAgICAgICAgICAgICAgICAgICAgICAgICAgICAgICAgICAgICAgICAgICAgICAgICAgICAg ICAgDQogICAgICAgICAgICAgICAgICAgICAgICAgICAgICAgICAgICAgICAgICAgICAgICAgICAgICAg ICAgICAgICAgICAgICAgICAgICAgICAgICAgICAgIC AgICAgICAgICAgICAgDQogICAgICAgICAgICAgICAgICAgICAgICAgICAgICAgICAgICAgICAgICAgIC AgICAgICAgICAgICAgICAgICAgICAgICAgICAgICAgICAgICAgICAgICAgICAgICAgICAgICAgDQogIC AgICAgICAgICAgICAgICAgICAgICAgICAgICAgICAg ICAgICAgICAgICAgICAgICAgICAgICAgICAgICAgICAgICAgICAgICAgICAgICAgICAgICAgICAgICAg ICAgICAgDQogICAgICAgICAgICAgICAgICAgICAgICAgICAgICAgICAgICAgICAgICAgICAgICAgICAg ICAgICAgICAgICAgICAgICAgICAgICAgICAgICAgIC RuISMoHCGdRRXdOOSwGTWcILe1J9udDNZqQESjUY4qERx4Ud4+WUsWCbKrNGH5ksFviI0GZN4hm4IwVN utNAQmf4CbMEb1TZ8ELUXoEVwcMM5NPHjidw7UFJNcPFAjcDZTz2poOiCsIFH8VEMxArtnGT3YFAPkS6 vsuqCdLNArNUPWFG3YLlHsY5FlrR76NOWGKp9+DQpl rgXoTqqDLjQ0AJIwz5MvOCy2ME4NOUOpFxeuc1MyLNXuHHHTOOgrXO9CDCZ6ING2HJRiQn8FPGHiM538 gdAfKA1AKi4OWmPxJO8twf5BQGMtEIPiSxdUCtc7BYtiLO4DqJZfGItZqc1btwXqpxPLy0HqzzDpqYYB FMTdutIUe7n4i9PrksuwTx1yREIrQY3iWO0vHINjBP QsQdOiCVUEBJ6YHQGdETVjpEEnPQNoLVZDEI1OHFguCMK0FrcyahXduSQzOMcmYF7GVLJeoiZvTUKrCI BSDQo+Ub8TSJ5wz9HgSKjrUuBzME9hwo4YPZlALoZkR0M6vPOiZ5G3SGrhRa3YHQNtFNBaVOYaMZSYDZ kfKL6TSN0rsfQ3IR2VjRYaVYYsSVRyiFNhMWg8F95l xIViUQqiRX2DTKP+Jose+Op7XSFJlIGUmMWLaCqKlTXRYNoRfO8HjU7SKq5IgI3XbTY75uJprdiRmZGij KN7DUM2zTPRxVQFPXZ1GbZBlnS8eopUpGSOyLZOHPaWzZ12ypDSmQMOwZHCgDJCbSb3ELUKaK4AqfhHr fXwnsqQyFILqKDDLTY0PNMlpzaGntTYhsFwpSE57tE wgNZ3AKi8OLaYsSS7tos3AoFOqFl3MJQDiZi0UJLLkSWZwLXChFIA0CAKoSfDjRPrkVNLdYMBgIIT9UD PvQQYfYJ4BQgEhVGUzDGF5ZBYbTLEgCWSgbo5NEQOeMIVjCnU2ViCsPLGbFWEkPBebDQWyPYSlAJO9XF OxOQQzYD1ZGzEsZRMsCIW2HNKoADDbNCVkuh2SQNXh EXDlFXl6IaUdUPUaXRQiIGfqJBIpWIRrFNU5LOPpZKGeYJ5TNhOiJMOoAPZzNNQuJLQoZZDjkt2VCTWv KRJhSkQ7UGYfZKKyPTYaDOlfXNDbJUO1BXM9GUXaPTTwAV5BLtLgZRCpQPNsEIPuBKAfNZCbwr3XTTVj RIMgEADjCSItRVKfOYBjUQdaGGMcQDJ2RBYjCCEzPJ AxBQ9HLaJrRGWeIWPvTiZkISDaVUTyth7LXUDnUNViBgO9TJFtGRAuAWLgNEhoPMNxDUY3KEtnBNStUI JeES7YRcEcMAhaUYNBGml6TUfdP1y2ZDLzQs7VK4Bzv2GvNXIsWAZLAXluHB5jjlFrJXFoEy7CN7rRHs osKcDpFTJ9EQetMjxbVNXcPnPnJ1WuYAW9NIH6CBN9 FY6zVZB5RnNqBPxbRLNiMSIxLUIaSCBfKpJbAxStQeGiDvQoOxGdKW3PTp4VQdE8DXA6kGSrIf8SGrtr FK7HZWNJL6FZMz== Procedure Vital Signs ID Date Data Source UNK Name Value Range Interpretation Code Description Data Source(s) Diastolic blood pressure 74 mm[Hg] 74 mm[Hg] eCW1 ([facility]) Systolic blood pressure 141 mm[Hg] 141 mm[Hg] e CW1 ([facility]) Body temperature 99.0 [degF] 99.0 [degF] eCW1 ( [facility]) Respiratory rate 18 /min 18 /min eCW1 ([facility]) Heart rate 101 /min 101 /min eCW1 ([facility]) Body mass index (BMI) [Ratio] 29.72 kg/m2 29.72 kg/m2 eCW1 ([facility]) Body height 65 [in_us] 65 [in_us] eCW1 ([facility]) Body weight Measured 178.6 [lb_av] 178.6 [lb_av ] eCW1 ([facility]) Diastolic blood pressure 92 mm[Hg] 92 mm[Hg] eCW1 ([facility]) Systolic blood pressure 143 mm[Hg] 143 mm[Hg] e CW1 ([facility]) Body temperature 98.5 [degF] 98.5 [degF] eCW1 ( [facility]) Respiratory rate 18 /min 18 /min eCW1 ([facility]) Heart rate 76 /min 76 /min eCW1 ([facility]) Body mass index (BMI) [Ratio] 29.98 kg/m2 29.98 kg/m2 eCW1 ([facility]) Body height 65 [in_us] 65 [in_us] eCW1 ([facility]) Body weight Measured 180.2 [lb_av] 180.2 [lb_av ] eCW1 ([facility]) ID Date Data Source [id number] 10/12/2020 11:01:54 AM [facility] Name Value Range Interpretation Code Description Data Source(s) TRANSFER FROM [facility] ID Date Data Source [id number] 10/12/2020 01:40:29 AM [facility] Name Value Range Interpretation Code Description Data Source(s) TRANSFER FROM [facility]
[2020-10-12] MEDS ORDERED: SERTRALINE 100 MG TAB PO ONE (21:45)
[2020-10-12] MEDS ORDERED: traZODone 50 MG TAB PO ONE (21:45)
[2020-10-12] MEDS ORDERED: LORazepam 1 MG TAB PO ONE (21:45)
[2020-10-12] MEDS ORDERED: QUEtiapine FUMARATE 25 MG TAB PO ONE (21:45)
[2020-10-12] MEDS: metFORMIN (GLUCOPHAGE) 500MG TAB PO SCH (21:46)
[2020-10-12] MEDS: SERTRALINE 100 MG TAB PO SCH (21:46)
[2020-10-12] MEDS: OLANZapine ORAL DISINTEGRATING TAB 5MG PO PRN (22:18)
[2020-10-12 22:49] VITALS: BP 142/91
[2020-10-13] MEDS: metFORMIN (GLUCOPHAGE) 500MG TAB PO SCH (09:09)
[2020-10-13] MEDS: SERTRALINE 100 MG TAB PO SCH (09:09)
--- NOTE | 2020-10-13 14:07 | MHHPEPDOC ---
General Date Of Admission: Oct 12, 2020 Legal Status: 9.39 Chief Complaint "I was brought here because I took my gun into the javed to shoot" History of Present Illness HISTORY OF THE PRESENT ILLNESS: Per ED reports, patient is a 35 -year-old , male, who was brought in by police after his called, concerned because they had an argument and he left the house with a gun. was con cerned beause he left the house with the gun without saying anything so she called a pic up order and reports the police are already looking for her. He is previous AD of 6 years, with 2 previous deployments. He was diagnosed with PTSD in 2007 and sees a psychiatrist monthly, is currently prescribed sertraline 100 mg. He has had one previous suicide attempt in 2009 by overdose, where he was found unresponsive. Per patient, he reports that he took the gun from his house in order to go moises oting in the javed. He states, "It is my constitutional right to have a gun and go shoot off in the javed if I want to." He states that he was never going to hurt himself and that his became concerned because she heard him get his gun out and that he left the house. He then reported that she called the hospital because she was concerned. He reports his has trauma to her frontal lobe and was manipulated by the staff at [facility] to call the police in order to bring him here. He currently denies si. Psychiatric Review of Systems Olamide (4 or more days of): irritable/elevated mood Anxiety/ 6 months or more of: irritability Past Psychiatric History Previous Psychiatric Diagnosis: PTSD Previous Psychiatric Admissions: 2009 - . [facility] after he overdosed and was found unresponsive Suicide Attempts: 2009 - Halie López after he overdosed and was found unresponsive Psychiatric Follow-up: [facility] Psychiatric medications: Zoloft 100 mg po daily. 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[employer], [employer] cell phone communication Social Support: [place], Best friend Miah Legal: None Marital: , 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, with 2 deployments to [place] Mental Status Examination General Appearance: disheveled, ds/not appear stated age, hospital scubs/clothi ng Build: thin Demeanor: hostile, very figety Eye Contact: average, intense Activity: agitated, hostile Behavior: uncooperative, resistant, agitated, restless Speech: clear, other (loud, yelling ) Mood: angry, irritable Affect: full, appropriate, congruent, hostile Thought Process: logical/linear Thought Content (Delusions): denies SI, HI, AVH Thought Content (Other): guarded, coherent Thought Content (Aggressive): none reported Perception (Hallucinations): none reported Perception (Other): none reported Cognition (Impairment of): none reported Cognition(Intelligence Est.): average Oriented: Awake, Alert, Oriented times three Judgment: Poor Psychosis: Denies Diagnoses PTSD A-FIB/CHADSVASC A-FIB History Current/History of A-Fib/PAF?: No Current PO Anticoag Therapy: No Assessment Patient is a 35 year old, domiciled, , white male who presented to the emergency room with police after his called, concerned that he was going to kill himself. Per ED reports, patient and his had an argument and Hebert left the house with a loaded shot gun and didn't tell her anything. He has a history of a suicide attempt in 2009 and a diagnosis of PTSD. Hebert adamantly denies having suicidal thoughts, reported that he took his gun to go shoot in the javed. He reported he got stuck in the javed for three hours and had to dig himself out and also didn't have any cell phone service. At this interview, he is angry, yelling at this brief writer. When asked what brought him in to the hospital, he immediately becomes significantly defensive and maintains this stance throughout the interview. He continuously bringing up irrelevant comments about guns, such as how he educates his children on guns and how its his "constitutional right to own a gun." He has poor insight and judgment, unable to correlate how his actions before admission, and his calling the metallurgical engineer led to his admission. He reports "I never should have been admitted, I have asked to talk to multiple supervisors and they haven't been able to yet." During the admission, he was heard outside of the room to be loud and angry and process safety management engineer came in to check on staff and situation. He had to be redirected to lower voice and anger levels. He refuses to listen to this brief writer and continuously cuts off this brief writer when attempting to discuss and explain the reason [facility] staff thought he should have been admitted. He state "I just want meds to knock me out because I'm clearly not leaving today." He was offered olanzapine and he left the interview,. Pt not receptive to admission questions, will attempt to get releases signed and obtain collateral from and attempt rest of admission when patient less agitated and willing to participate. Initial Treatment Plan 1. Patient was admitted on a [9.39] status. 2. Complete history was obtained. 3. With patients permission, family will be contacted and database will be expanded. 4. Patients medication regimen will be reviewed and changed accordingly. 5. Patient will be provided with protected environment. 6. Patient will be treated with individual, group, and milieu therapies. 7. Patient will receive supportive psych-education. 8. Discharge planning will commence immediately. 9. Outpatient follow-up treatment will be strongly recommended. 10. The initial treatment plan will focus initially on: * Depression. * Risk for suicide. ESTIMATED LENGTH OF STAY: 3-5 DAYS. TIME SPENT COUNSELING AND COORDINATING INITIAL CARE: 60 minutes. Vital Signs Vital Signs Date Time Temp Pulse Resp B/P (MAP) Pulse Ox O2 Delivery O2 Flow Rate FiO2 10/12/20 22:49 97.6 81 20 142/91 (108) 99 Room Air Laboratory Data 24H Labs Laboratory Tests 2 10/12/20 13:54: Immature Granulocyte % (Auto) 0.4, Neutrophils (%) (Auto) 52.9, Lymphocytes (%) (Auto) 32.3, Monocytes (%) (Auto) 7.2H, Eosinophils (%) (Auto) 6.3H, Basophils (%) (Auto) 0.9, Neutrophils # (Auto) 5.3, Lymphocytes # (Auto) 3.3, Monocytes # (Auto) 0.7, Eosinophils # (Auto) 0.6H, Basophils # (Auto) 0.1, Nucleated Red Blood Cells % (auto) 0.0 10/12/20 17:31: Coronavirus (COVID-19)(PCR) NEGATIVE, Influenza Type A (RT-PCR) NEGATIVE, Influenza Type B (RT-PCR) NEGATIVE, Respiratory Syncytial Virus (PCR) NEGATIVE CBC/BMP Laboratory Tests 10/12/20 13:54 Medications Scheduled Metformin HCl (Metformin HCl) 500 Mg Tablet, 500 MG PO DAILY, (Reported) Metformin HCl (Metformin HCl) 500 Mg Tablet, 500 MG PO DAILY for Diabetes Sertraline HCl (Sertraline HCl) 100 Mg Tablet, 100 MG PO DAILY for Depression Sertraline Hcl (Zoloft) 100 Mg Tablet, 100 MG PO DAILY, (Reported) Scheduled PRN Olanzapine (Zyprexa) 5 Mg Tablet, 5 MG PO BIDP PRN for ANXIETY/AGITATION Allergies Coded Allergies: No Known Allergies (Unverified , 10/11/20) DARREL BROOKS PROTEIN SPECIALIST Oct 13, 2020 14:07
[2020-10-13] MEDS: OLANZapine ORAL DISINTEGRATING TAB 5MG PO PRN ×2 (15:49→20:14)
[2020-10-13 16:36] VITALS: BP 142/89
--- NOTE | 2020-10-13 20:17 | HPEPDOC ---
General Date of Admission Oct 12, 2020 at 19:02 Date of Service: Oct 13, 2020 Chief Complaint The patient is a 35-year-old male admitted with a reason for visit of Post Traumatic Stress Disorder. Source: Patient Exam Limitations: No limitations Timing/Duration: Day(s) History of Present Illness Patient is 35 years old male with chronic back pain presented to the hospital with police after his called, concerned that he was going to kill himself. Per ED reports, patient and his had an argument and Hebert left the house with a loaded shot gun and didn't tell her anything. He has a history of a suicide attempt in 2009 and a diagnosis of PTSD. During my interview patient denied fever, chest pain, chills, nausea, vomiting, diarrhea or dysuria Home Medications Scheduled Metformin HCl (Metformin HCl) 500 Mg Tablet, 500 MG PO DAILY, (Reported) Sertraline Hcl (Zoloft) 100 Mg Tablet, 100 MG PO DAILY, (Reported) Allergies Coded Allergies: No Known Allergies (Unverified , 10/11/20) Past Medical History Medical History PTSD, anxiety, depression, chronic back pain Family History Mother drug addicted Social History * Smoker: current smoker Alcohol: occationally Drugs: marijuana A-FIB/CHADSVASC A-FIB History Current/History of A-Fib/PAF?: No Current PO Anticoag Therapy: No Review of Systems Constitutional: Denies: Chills, Fever Eyes: Denies: Pain ENT: Denies: Head Aches Skin: Denies: Rash Pulmonary: Denies: Dyspnea Cardiovascular: Denies: Chest Pain Gastrointestinal: Denies: Nausea Genitourinary: Denies: Dysuria Hematologic: Denies: Bruising Musculoskeletal: Denies: Neck Pain Neurological: Denies: Weakness Psych: Reports: Depression Physical Examination General Exam: Positive: Alert, Cooperative Eye Exam: Positive: PERRLA ENT Exam: Positive: Atraumatic Neck Exam: Negative: JVD Chest Exam: Positive: Clear to auscultation Heart Exam: Positive: Rate Normal Telemetry: Positive: No significant arrhythmia Abdomen Exam: Positive: Normal bowel sounds Extremity Exam: Negative: Clubbing, Cyanosis Skin Exam: Positive: Nl turgor and temperature Neuro Exam: Positive: Normal Gait Psych Exam: Positive: Oriented x 3 Vital Signs Vital Signs Date Time Temp Pulse Resp B/P (MAP) Pulse Ox O2 Delivery O2 Flow Rate FiO2 10/13/20 16:36 98.5 90 18 142/89 (106) 96 Room Air Assessment/Plan Patient is 35 years old male with chronic back pain presented to the hospital with police after his called, concerned that he was going to kill himself. Per ED reports, patient and his had an argument and Hebert left the house with a loaded shot gun and didn't tell her anything. He has a history of a suicide attempt in 2009 and a diagnosis of PTSD. During my interview patient denied fever, chest pain, chills, nausea, vomiting, diarrhea or dysuria Problems (1) Depression with suicidal ideation Status: Acute Problem Text: Defer treatment psych team Plan / VTE VTE Prophylaxis Ordered?: No MG BAKER DO Oct 13, 2020 20:17
[2020-10-14] MEDS: SERTRALINE 100 MG TAB PO SCH (08:20)
[2020-10-14] MEDS: metFORMIN (GLUCOPHAGE) 500MG TAB PO SCH (08:20)
[2020-10-14] MEDS ORDERED: NICOTINE 21MG/24HR 1 EA TRANSDERMAL TD SCH (09:00)
[2020-10-14] MEDS: OLANZapine ORAL DISINTEGRATING TAB 5MG PO PRN (12:34)
[2020-10-14] MEDS ORDERED: METF500T13 PO (15:02)
[2020-10-14] MEDS ORDERED: SERT-138 PO (15:04)
--- NOTE | 2020-10-14 15:25 | MHDSPDOC ---
[facility] Discharge Summary Discharge Summary DATE OF ADMISSION: Oct 12, 2020 at 19:02 DATE OF DISCHARGE: October 14, 1505 DISCHARGE DIAGNOSES: PTSD REASON FOR ADMISSION: Per ED reports, patient is a 35 -year-old , Employed, Domiciled , male, who was brought in by police after his called, concerned because they had an argument and he left the house and returned to the home and left again this time with a gun. was concerned because he left the house with the gun without saying anything so she called a pickler helper order. He is previous AD of 6 years, with 2 previous deployments. He was diagnosed with PTSD in 2007 and sees a psychiatrist monthly, is currently prescribed sertraline 100 mg. He has had one previous suicide attempt in 2009 by overdose, where he was found unresponsive. Per patient, he reports that he took the gun from his house in order to go shooting in the [place]. He states, "It is my constitutional right to have a gun and go shoot off in the [place] if I want to." He states that he was never going to hurt himself and that his became concerned because she heard him get his gun out and that he left the house. He then reported that she called the hospital because she was concerned. He reports his has trauma to her frontal lobe and was manipulated by the staff at [facility] to call the police in order to bring him here. He currently denies SI CONSULTANTS INVOLVED: See Medical H + P by Hospital TREATMENT AND PROGRESS ON THE UNIT: Patient was admitted to the [facility] on a 9.39 legal status he was afforded the following treatment modalities: 1) Individual Therapy 2) Group Therapy 3) Medication Management 4) Milieu Therapy 5) Safe Environment HOSPITAL COURSE: Patient was admitted to [facility] on a 9.39 legal status. He refused to be interviewed after arguing repeatedly that his constitutional rights had been taken away from him because he was not suicidal and had not thoughts to harm himself. In his initial interview. Patient adamantly denies having suicidal thoughts, reported that he took his gun to go shoot in the [place]. He reported he got stuck in the javed for three hours and had to dig himself out and also didn't have any cell phone service. At this interview, he is angry, yelling at this internal communications writer. When asked what brought him in to the hospital, he immediately becomes significantly defensive and maintains this stance throughout the interview. He continuously bringing up irrelevant comments about guns, such as how he educates his children on guns and how its his "constitutional right to own a gun." He has poor insight and judgment, unable to correlate how his actions before admission, and his calling the middle school reading teacher led to his admission. He reports "I never should have been admitted, I have asked to talk to multiple supervisors and they haven't been able to yet." During the admission, he was heard outside of the room to be loud and angry and safety pin assembling machine operator came in to check on staff and situation. He had to be redirected to lower voice and anger levels. He refuses to listen to this internal communications writer and continuously cuts off this internal communications writer when attempting to discuss and explain the reason [facility] staff thought he should have been admitted. He state "I just want meds to knock me out because I'm clearly not leaving today." He was offered ol anzapine and he left the interview,. Pt not receptive to admission questions, will attempt to get releases signed and obtain collateral from and attempt rest of admission when patient less agitated and willing to participate. DISCHARGE ASSESSMENT: On interview, patient was willing to finish up the initial psychiatric assessment, he wanted to call his for collateral information. Mary states, "I was concerned because he left the house with a gun after a bad argument we had." She states that she did not feel that her call to the Police would result in an admission. Patient has a history of a suicide and states that her concern was that she would feel badly if he had done something and she had ignored his behaviors. In the interview, patient continued to argue that his rights were violated because he was not suicidal. Reinforced with patient that he had 1) an argument with his , 2) she called the police and stated on the phone that she was concerned about his leaving the home with a gun after a very intense argument 3) patient has a history of suicide attempt by overdose 4) she could not reach him (due to poor cell service) which elevated her concerns. When I stated to him that I would try to discharge him today, but that it may be tomorrow if discharge planners could not coordinate it, patient again became belligerent. He began to argue that the law was skewed and that he wanted a qa tech. I reminded him that my efforts to discharge him was being hindered by his continued arguing with me. Patient's attempted to calm him down and reaffirm that the attempt to discharge him was in good efforts to make it today, but he would need to be resolved if it occurred tomorrow. Call to Boiler Reliner Guillermo to coordinate the discharge. Patient had to be strongly directed to leave the room in order to make discharge orders happen. He apologized. MENTAL STATUS EXAMINATION ON DISCHARGE: Patient is a 35 -year-old , Employed, Domiciled , male, who was brought in by police after his called, concerned because they had an argument and he left the house and returned to the home and left again this time with a gun Speech: Is fluid, conversant, normal rate, tone and volume Language skills are intact Thought processes including: linear and goal oriented Thought content: denies depression and anxiety. Denies suicidal/homicidal i deation, planning or intent. Abstract reasoning, and computation: fair Description of associations: denies, none observed Description of abnormal or psychotic thoughts: denies, none observed. Judgment: fair Insight: fair Orientation: alert and oriented to person, place, time and situation Recent and remote memory: intact Attention span and concentration: good Language: expansive Fund of knowledge: average Mood: Euthymic Mood, argumentative Affect: reactive MEDICATIONS ON DISCHARGE: Metformin 500 mg Daily Sertraline 100 mg Daily PLAN/FOLLOWUP ARRANGEMENTS: See Boiler Reliner's Notes The amount of time spent in the coordination of care for this patient was approximately 35 minutes. Late entry: While patient was reviewing his discharge with his primary RN, he requested Zyprexa Zydis for his anxiety and agitation. Rx sent to [facility] in [place]. Vital Signs/I&Os Vital Signs Date Time Temp Pulse Resp B/P (MAP) Pulse Ox O2 Delivery O2 Flow Rate FiO2 10/13/20 16:36 98.5 90 18 142/89 (106) 96 Room Air Medications Scheduled Metformin HCl (Metformin HCl) 500 Mg Tablet, 500 MG PO DAILY, (Reported) Metformin HCl (Metformin HCl) 500 Mg Tablet, 500 MG PO DAILY for Diabetes, #7 Sertraline HCl (Sertraline HCl) 100 Mg Tablet, 100 MG PO DAILY for Depression, #7 Sertraline Hcl (Zoloft) 100 Mg Tablet, 100 MG PO DAILY, (Reported) Scheduled PRN Olanzapine (Zyprexa) 5 Mg Tablet, 5 MG PO BIDP PRN for ANXIETY/AGITATION, #14 Allergies Coded Allergies: No Known Allergies (Unverified , 10/11/20) DARREL BROOKS NP Oct 14, 2020 15:25
[2020-10-14] MEDS ORDERED: ZYPR5TAB2 PO (15:45)
== END 2020-10-14 16:06 | disposition home or self-care (01) | DRG 882 ==
LOC: M ED 19:54 → M ED INP 10-12 19:02 → M PSY 10-12 21:20
PROVIDERS: ADMIT Psychiatry & Neurology Psychiatry; ATTEND Psychiatry & Neurology Geriatric Psychiatry
DX: F43.10 Post-traumatic stress disorder, unspecified (principal)

== ENCOUNTER → 2023-10-19 | Outpatient (CLI) | payer OTHER ==
[~2023-10-19] MED LIST changes: -ISOVUE-M 300 61% 15ML VIAL (Q9967) As Ordered ONE; -LIDOCAINE 1% SDV INJ 30 ML VIAL As Ordered ONE; +METF-839 PO; +METF500T13 PO; +SERT-138 PO; +ZOLO100T PO; +ZYPR5TAB2 PO; -diazePAM 5 MG TAB As Ordered ONE; -methylPREDNISolone SUSP 40 MG/ML (DEPO-medrol) VIAL (J1030) As Ordered ONE; -oxyCODONE 5MG TAB As Ordered ONE
== END ==
LOC: M PAIN 08:00
PROVIDERS: ATTEND Nurse Practitioner Family
DX: M51.16 Intervertebral disc disorders with radiculopathy, lumbar region (principal); G89.29 Other chronic pain; E11.9 Type 2 diabetes mellitus without complications; F43.10 Post-traumatic stress disorder, unspecified; F32.A Depression, unspecified; F41.9 Anxiety disorder, unspecified; Z79.899 Other long term (current) drug therapy; Z87.891 Personal history of nicotine dependence

== ENCOUNTER → 2023-10-26 | Outpatient (CLI) | payer OTHER ==
[~2023-10-26] MED LIST changes: +ISOVUE-M 300 61% 15ML VIAL As Ordered ONE; +LIDOCAINE 1% SDV 30ML VIAL As Ordered ONE; +diazePAM 5MG TABLET As Ordered ONE; +methylPREDNISolone SUSP 40MG/ML 1ML VIAL (DEPO MEDROL) As Ordered ONE
== END ==
LOC: M PAIN 13:00
PROVIDERS: ATTEND Anesthesiology
DX: M51.16 Intervertebral disc disorders with radiculopathy, lumbar region (principal); G89.29 Other chronic pain; E11.9 Type 2 diabetes mellitus without complications; F43.10 Post-traumatic stress disorder, unspecified; F32.A Depression, unspecified; F41.9 Anxiety disorder, unspecified; Z79.84 Long term (current) use of oral hypoglycemic drugs; Z79.899 Other long term (current) drug therapy; Z87.891 Personal history of nicotine dependence
CPT/HCPCS: 62323; J1030; Q9967

== ENCOUNTER → 2023-11-24 | Outpatient (CLI) | payer OTHER ==
[~2023-11-24] MED LIST changes: -ISOVUE-M 300 61% 15ML VIAL As Ordered ONE; -LIDOCAINE 1% SDV 30ML VIAL As Ordered ONE; -diazePAM 5MG TABLET As Ordered ONE; -methylPREDNISolone SUSP 40MG/ML 1ML VIAL (DEPO MEDROL) As Ordered ONE
== END ==
LOC: M PAIN 09:15
PROVIDERS: ATTEND Nurse Practitioner Family
DX: M51.16 Intervertebral disc disorders with radiculopathy, lumbar region (principal); E11.9 Type 2 diabetes mellitus without complications; Z79.84 Long term (current) use of oral hypoglycemic drugs; Z79.899 Other long term (current) drug therapy

== ENCOUNTER → 2024-02-13 | Outpatient (CLI) | payer OTHER ==
[~2024-02-13] MED LIST changes: +ISOVUE-M 300 61% 15ML VIAL As Ordered ONE; +LIDOCAINE 1% SDV 30ML VIAL As Ordered ONE; +dexAMETHasone 10MG/1ML VIAL PRES.FREE As Ordered ONE; +diazePAM 5MG TABLET As Ordered ONE
== END ==
LOC: M PAIN 11:00
PROVIDERS: ATTEND Anesthesiology
DX: M47.816 Spondylosis without myelopathy or radiculopathy, lumbar region (principal); G89.29 Other chronic pain; M54.50 Low back pain, unspecified; E11.9 Type 2 diabetes mellitus without complications; F43.10 Post-traumatic stress disorder, unspecified; F32.A Depression, unspecified; F41.9 Anxiety disorder, unspecified; Z87.891 Personal history of nicotine dependence; Z79.899 Other long term (current) drug therapy
CPT/HCPCS: 64493; 64494; J0665; J1100; Q9967

== ENCOUNTER → 2024-04-16 | Outpatient (CLI) | payer OTHER ==
[~2024-04-16] MED LIST changes: -ISOVUE-M 300 61% 15ML VIAL As Ordered ONE; -LIDOCAINE 1% SDV 30ML VIAL As Ordered ONE; -dexAMETHasone 10MG/1ML VIAL PRES.FREE As Ordered ONE; -diazePAM 5MG TABLET As Ordered ONE
== END ==
LOC: M PAIN 11:45
PROVIDERS: ATTEND Nurse Practitioner Family
DX: M47.816 Spondylosis without myelopathy or radiculopathy, lumbar region (principal); G89.29 Other chronic pain; M54.50 Low back pain, unspecified; E11.9 Type 2 diabetes mellitus without complications; F43.10 Post-traumatic stress disorder, unspecified; F32.A Depression, unspecified; F41.9 Anxiety disorder, unspecified; Z87.891 Personal history of nicotine dependence; Z79.899 Other long term (current) drug therapy

== ENCOUNTER → 2024-05-29 | Outpatient (CLI) | payer OTHER | LOC: M PAIN 11:45 | PROVIDERS: ATTEND Anesthesiology | DX: M47.816 Spondylosis without myelopathy or radiculopathy, lumbar region (principal); M79.18 Myalgia, other site; G89.29 Other chronic pain; M54.50 Low back pain, unspecified; E11.9 Type 2 diabetes mellitus without complications; F43.10 Post-traumatic stress disorder, unspecified; F32.A Depression, unspecified; F41.9 Anxiety disorder, unspecified; Z79.899 Other long term (current) drug therapy; Z87.891 Personal history of nicotine dependence | CPT/HCPCS: 76000; G0463 ==

== ENCOUNTER → 2024-06-16 | Outpatient (CLI) | payer OTHER | LOC: M SLEEP 20:00 | PROVIDERS: ATTEND Internal Medicine | DX: G47.33 Obstructive sleep apnea (adult) (pediatric) (principal) ==